=== PATIENT | female | born 1985 | race African-American/Black ===

== ENCOUNTER 2016-12-19 23:12 | Emergency (ER) | payer MEDICAID ==
[~2016-12-19] VITALS: Ht 157.5 cm; Wt 118.0 kg
[2016-12-20] MEDS ORDERED: HYDROCODONE/ACETAMINOPHEN 10/325MG TABLET PO ONE (00:45)
[2016-12-20 03:09] VITALS: BP 119/60
== END 2016-12-20 03:16 | disposition home or self-care (01) ==
LOC: ER 23:12
DX: S20.219A Contusion of unspecified front wall of thorax, initial encounter (principal); S96.919A Strain of unspecified muscle and tendon at ankle and foot level, unspecified foot, initial encounter; S46.911A Strain of unspecified muscle, fascia and tendon at shoulder and upper arm level, right arm, initial encounter; E66.9 Obesity, unspecified; F12.10 Cannabis abuse, uncomplicated; F17.200 Nicotine dependence, unspecified, uncomplicated; V13.4XXA Pedal cycle driver injured in collision with car, pick-up truck or van in traffic accident, initial encounter; Y93.55 Activity, bike riding; Y92.89 Other specified places as the place of occurrence of the external cause; Y99.8 Other external cause status; Z98.51 Tubal ligation status; Z90.89 Acquired absence of other organs
CPT/HCPCS: 71010; 73030; 73060; 73630; 81025; 93005; 99284; Z7610

== ENCOUNTER 2018-12-03 00:08 | Emergency (ER) | payer MEDICAID ==
[~2018-12-03] VITALS: Ht 162.6 cm; Wt 85.0 kg
[2018-12-03 00:44] VITALS: BP 144/97
== END 2018-12-03 03:24 | disposition left against medical advice (07) ==
LOC: ER 01:20
DX: Z53.21 Procedure and treatment not carried out due to patient leaving prior to being seen by health care provider (principal)

== ENCOUNTER 2019-05-07 06:05 | Emergency (ER) | payer MEDICAID ==
[~2019-05-07] VITALS: Ht 177.8 cm; Wt 105.0 kg
[2019-05-07] MEDS ORDERED: CEFTRIAXONE SODIUM 250 MG/VIAL IM ONE (07:00)
[2019-05-07] MEDS ORDERED: AZITHROMYCIN 500 MG TABLET PO ONE (07:00)
[2019-05-07] MEDS ORDERED: IBUPROFEN 600MG TABLET PO ONE (07:00)
[2019-05-07 07:14] LABS: CLARITY URINE TURBID (CLEAR); COLOR URINE YELLOW (YELLOW); KETONES URINE NEGATIVE (NEGATIVE); LEUKOCYTE ESTERASE URINE NEGATIVE (NEGATIVE); NITRITE URINE NEGATIVE (NEGATIVE); OCCULT BLOOD URINE NEGATIVE (NEGATIVE); PH URINE 5.5 (4.5-8.0); PROTEIN URINE TRACE (NEGATIVE); SPECIFIC GRAVITY URINE 1.025 (1.005-1.030); UROBILINOGEN URINE 0.2 E.U./dL (0.2-1.0)
[2019-05-07 09:21] VITALS: BP 168/89
[2019-05-10 08:07] LABS: NEISSERIA GONORRHOEAE NAA Negative (Negative)
== END 2019-05-07 09:27 | disposition home or self-care (01) ==
LOC: ER 06:05
DX: S62.92XA Unspecified fracture of left hand, initial encounter for closed fracture (principal); S62.603A Fracture of unspecified phalanx of left middle finger, initial encounter for closed fracture; A64 Unspecified sexually transmitted disease; X58.XXXA Exposure to other specified factors, initial encounter; Y93.89 Activity, other specified; Y92.89 Other specified places as the place of occurrence of the external cause; Y99.8 Other external cause status; F12.10 Cannabis abuse, uncomplicated; Z90.49 Acquired absence of other specified parts of digestive tract
CPT/HCPCS: 29130; 73130; 81003; 81025; 87491; 87591; 96372; 99284; J0696

== ENCOUNTER 2020-04-29 05:26 | Emergency (ER) | payer MEDICAID ==
[~2020-04-29] VITALS: Ht 162.6 cm; Wt 120.0 kg
[2020-04-29 05:39] VITALS: BP 168/90
== END 2020-04-29 06:30 | disposition left against medical advice (07) ==
LOC: ER 05:26
DX: S60.454A Superficial foreign body of right ring finger, initial encounter (principal); W45.8XXA Other foreign body or object entering through skin, initial encounter; Y93.89 Activity, other specified; Y92.018 Other place in single-family (private) house as the place of occurrence of the external cause
CPT/HCPCS: 99281

== ENCOUNTER 2020-04-29 08:17 | Emergency (ER) | payer MEDICAID | END 2020-04-29 09:05 | disposition left against medical advice (07) | LOC: ER 08:25 | DX: Z53.21 Procedure and treatment not carried out due to patient leaving prior to being seen by health care provider (principal) ==